=== PATIENT | male | born 1940 | race African-American/Black ===

== ENCOUNTER 2016-09-05 09:44 | Emergency (ER) | payer OTHER ==
[~2016-09-05] VITALS: Ht 175.3 cm; Wt 84.8 kg
[~2016-09-05 09:44] MED LIST: ALBUTEROL0.09 MG/A1 INH; AUGMENTIN 875 M1 TAB PO; BENICAR HCT 12.1 TA1 PO; SIMVASTATIN20 MG PO; TESSALON PERLE100 MG PO; TYLENOL #31 TAB PO
--- NOTE | 2016-09-05 10:54 | ED UPPER/LOWER EXTREMITY COMPL ---
History of Present Illness General Chief Complaint: Lower Extremity Problems Stated Complaint: LFT LEG PAIN Source: patient Exam Limitations: no limitations Vital Signs & Intake/Output Vital Signs & Intake/Output Vital Signs Date Time Temp Pulse Resp B/P Pulse O2 O2 Flow FiO2 Ox Delivery Rate 09/05 1336 97.4 88 17 139/76 97 Room Air 09/05 0954 96.6 80 16 143/83 97 Room Air Allergies Coded Allergies: NO KNOWN ALLERGIES (03/18/16) Reconcile Medications Hydrochlorothiazide/Olmesart (Benicar Hct 12.5 MG-40 MG) 1 TAB TAB 1 TAB PO DAILY BP (Reported) Methylprednisolone. (Medrol) 4 MG TAB.DS.PK 1 DP PO AD back pain 6 on day 1 then reduce by one tablet daily until gone Simvastatin (Zocor) 20 MG TAB 1 TAB PO QPM CHOLESTEROL (Reported) Tramadol HCl 50 MG TABLET 1 TAB PO BIDP PRN pain Triage Note: 76 Y/O MALE C/O PAIN TO L LEG (L THIGH AND AROUND L KNEE) FOR MONTHS; STATES LEG USED TO "GIVE OUT" ON HIM BUT NEVER CAUSED PAIN UNTIL RECENTLY. DENIES RECENT FALLS OR TRAUMA. DENIES NOTING SWELLING, REDNESS OR BRUISING. HAS BEEN TAKING TYLENOL WITH NO RELIEF NOTED. SLIGHT LIMP NOTED. Triage Nurses Notes Reviewed? yes HPI: This patient is a 76-year-old male with past medical history including hypertension and prior DVT who presented to the emergency department today for evaluation of left leg pain. The patient reported that the pain began approximately one month ago. He reported that his symptoms began with feeling as though his leg was giving out underneath him. He denied ever falling and hitting his head. However, he reported that the pain has become constant and radiates from the back of his left thigh down to the top of his left foot. The pain gets up to 9 out of 10 and is throbbing. The patient has tried taking Tylenol for his symptoms without any relief. The pain seems to feel better when he is laying down and gets worse when he is ambulating. The patient denied any back pain, bowel or bladder incontinence, saddle paresthesia, numbness or tingling in his extremities, chest pain, difficulty breathing, abdominal pain, hemoptysis, leg swelling, or any other associated symptoms. (SHELLEY CORDOVA,CHINA) Past History Travel History Traveled to [place] past 21 day No Medical History Any Pertinent Medical History? see below for history Neurological: NONE EENT: NONE Cardiovascular: hypertension, hyperlipidemia Respiratory: NONE Gastrointestinal: NONE Hepatic: NONE Renal: NONE Musculoskeletal: disk herniation Psychiatric: NONE Endocrine: NONE Blood Disorders: DVT Cancer(s): NONE DIRECTOR TELEVISION/Reproductive: NONE Surgical History Surgical History: N Psychosocial History What is your primary language Georgian Tobacco Use: Never used Family History Hx Contributory? No (CHINA ROSA PA-C) Review of Systems Review of Systems Constitutional: Reports: no symptoms. EENTM: Reports: no symptoms. Respiratory: Reports: no symptoms. Cardiovascular: Reports: no symptoms. Gastrointestinal/Abdominal: Reports: no symptoms. Genitourinary: Reports: no symptoms. Musculoskeletal: Reports: see HPI. Skin: Reports: no symptoms. Neurological/Psychological: Reports: no symptoms. Hematologic/Endocrine: Reports: see HPI. All Other Systems: Reviewed and Negative (CHINA ROSA PA-C) Physical Exam Physical Exam General Appearance: well developed/nourished, no apparent distress, alert, awake Comments: Well-developed well-nourished person in no acute distress HEENT: Normal EENT exam, head normocephalic, moist mucous membranes Neck: Supple, no lymphadenopathy Back: Antalgic gait. Normal dissection. No midline tenderness Cardiovascular: Regular rate and rhythm with no murmurs Respiratory: Chest nontender. No respiratory distress. Breath sounds clear to auscultation bilaterally Left lower extremity: no effusions or overlying erythema or ecchymosis to the joint spaces. Full range of motion at the hip, knee, and ankle. Positive Homans sign. Positive tenderness to palpation over the calf. No bony or muscular deformities noted. Dorsalis pedis and posterior tibialis pulses 2+ and strong. Capillary refill less than 2 seconds Neuro: Alert oriented x3, cranial nerves II through XII grossly intact. Skin: No appreciable rash on exposed skin, skin is warm and dry. Psych: Mood and affect is normal (CHINA ROSA PA-C) Progress Differential Diagnosis: arterial insufficiency, cellulitis, CHF, compartment syndrome, contusion, dislocation, DVT, fracture, gout, septic arthritis, sprain, tendon injury Plan of Care: Orders Procedure Date/time Status PARTIAL THROMBOPLASTIN TIME 09/05 1037 Complete PROTHROMBIN TIME 09/05 1037 Complete COMPREHENSIVE METABOLIC PANEL 09/05 1037 Complete CBC WITHOUT DIFFERENTIAL 09/05 1037 Complete Laboratory Tests 09/05/16 1121: Anion Gap 8, Estimated GFR > 60, BUN/Creatinine Ratio 18.8, Glucose 90, Calcium 9.1, Total Bilirubin 0.7, AST 25, ALT 24, Alkaline Phosphatase 42, Total Protein 6.7, Albumin 3.9, Globulin 2.8, Albumin/Globulin Ratio 1.4, PT 13.2 H, INR 1.26 H, APTT 33, CBC w Diff NO MAN DIFF REQ, RBC 4.70, MCV 89.5, MCH 30.4, RDW 14.1, MPV 7.8, Gran % 59.5, Lymphocytes % 27.8, Monocytes % 8.2, Eosinophils % 4.3, Basophils % 0.2, Absolute Granulocytes 3.9, Absolute Lymphocytes 1.8, Absolute Monocytes 0.5, Absolute Eosinophils 0.3, Absolute Basophils 0, PUBS MCHC 33.9 Diagnostic Imaging: Viewed by Me: CT Scan, Ultrasound. Discussed w/RAD: CT Scan, Ultrasound. Radiology Impression: PATIENT: CHENTE JOHNSON PRESENT AGE: 76 PATIENT ACCOUNT NO: [id number] : 39 LOCATION: [facility] ORDERING PHYSICIAN: CHINA ROSA PA-C SERVICE DATE: 09/05/16 EXAM TYPE: US - US-UNILATERAL VENOUS DOPPLER EXAMINATION: US TRIPLEX LOWER EXTREMITY, LEFT CLINICAL INFORMATION: Left leg pain. COMPARISON: None. TECHNIQUE: Color- flow triplex imaging with spectral analysis and compression Doppler were performed on the left lower extremity. FINDINGS: The left common femoral vein is compressible and exhibits a normal phasic waveform; this suggests that the iliac veins are widely patent above. Within the proximal thigh, the visualized profunda femoris vein is patent and the examined greater saphenous vein and saphenofemoral junction are normal. Superficial femoral vein is patent in the proximal, mid and distal thigh. Popliteal vein appears normal to the level of the trifurcation, and the visualized deep calf veins are patent. No evidence of Barrett's cyst. IMPRESSION: No evidence of deep vein thrombosis in the left lower extremity. DICTATED BY: LORENA ROSS MD DATE/TIME DICTATED:09/05/161133 SAFE EXPERT:LUIS DATE/TIME TRANSCRIBED:09/05/161133 CONFIDENTIAL, DO NOT COPY WITHOUT APPROPRIATE AUTHORIZATION. <Electronically signed in Other Vendor System> SIGNED BY: LORENA ROSS MD 09/05/16 1895, PATIENT: CHENTE JOHNSON PRESENT AGE: 76 PATIENT ACCOUNT NO: [id number] : 39 LOCATION: [facility] ORDERING PHYSICIAN: CHINA ROSA PA-C SERVICE DATE: 09/05/16-1156 EXAM TYPE: CAT - CT LUMB SPINE WO IV CONTRAST EXAMINATION: CT LUMBAR SPINE WITHOUT CONTRAST CLINICAL INFORMATION: Pain to rule out disc herniation. COMPARISON: None available. TECHNIQUE: Helical non-contrast CT images were obtained through the lumbar spine and 1.25 and 2.5 mm axial reconstructions were reviewed along with sagittal and coronal MPRs. FINDINGS: 5 nonrib-bearing lumbar-type vertebral bodies. There are no acute fractures and there are no acute subluxations. Left hemilaminectomy changes at L4. There is no spondylolisthesis. Vertebral body heights are overall maintained. Moderate disc volume loss and vacuum phenomenon at all lumbar levels. No osteolytic and no osteoblastic lesions. Partially imaged bilateral renal cysts. Punctate nonobstructing calculus within the upper pole of the left kidney. Aortoiliac atherosclerotic calcification. L1-L2: Diffuse annular disc bulge with a superimposed posterior right central disc osteophyte protrusion that indents the ventral thecal sac and along with ligamentum flavum thickening likely results in moderate central canal stenosis. Mild foraminal narrowing bilaterally is suspected. L2-L3: There is a diffuse annular disc bulge that is in part a disc osteophyte complex. There is a small amount of vacuum phenomenon within the ventral portion of the disc. Mild bilateral facet arthropathy. Likely mild central canal stenosis. Suspect moderate bilateral foraminal stenosis. L3-L4: There is a diffuse disc osteophyte complex and there is a small amount of vacuum phenomenon within the ventral portion of the disc. Left hemilaminectomy changes at L4. Mild bilateral facet arthropathy. Mild to moderate central canal stenosis is suspected. Fairly severe right-sided foraminal stenosis with possible mass effect on the exiting right L3 nerve root. L4-L5: There is a central disc protrusion exhibiting vacuum phenomenon that likely results in moderate to severe central canal stenosis. There is moderate bilateral facet arthropathy. Fairly severe bilateral foraminal stenosis with probable mass effect on the exiting L4 nerve roots bilaterally. L5-S1: There is a central disc osteophyte protrusion that indents the ventral thecal sac, likely resulting in mild central canal stenosis. Bilateral facet arthropathy. Severe bilateral foraminal stenosis with mass effect on the exiting L5 nerve roots bilaterally. IMPRESSION: - Fairly advanced multilevel degenerative disc disease throughout the lumbar spine with a combination of disc bulges and disc herniations at all lumbar levels. Of note, a disc protrusion exhibiting vacuum phenomenon at L4-L5 likely results in moderate to severe central canal stenosis and a disc osteophyte protrusion at L1-L2 results in at least moderate central canal stenosis. Severe right L3-L4, severe bilateral L4-L5, and severe bilateral L5-S1 foraminal stenosis with suspected mass effect on the exiting nerve roots at these levels. There is multilevel subarticular zone stenosis with mass effect on the traversing nerve roots at multiple lumbar levels suspected. Several of the disc herniations exhibit vacuum phenomenon. - Left hemilaminectomy changes at L4. DICTATED BY: ANAT YARBROUGH MD DATE/TIME DICTATED:09/05/161321 SAFE EXPERT:LUIS DATE/TIME TRANSCRIBED:09/05/161321 CONFIDENTIAL, DO NOT COPY WITHOUT APPROPRIATE AUTHORIZATION. <Electronically signed in Other Vendor System> SIGNED BY: ANAT YARBROUGH MD 09/05/16 1337, PATIENT: CHENTE JOHNSON PRESENT AGE: 76 PATIENT ACCOUNT NO: [id number] : 39 LOCATION: [facility] ORDERING PHYSICIAN: CHINA ROSA PA-C SERVICE DATE: 09/05/16-5952 EXAM TYPE: CAT - CT LOWER EXT WO IV CONTRAST EXAMINATION: CT LOWER EXTREMITY WITHOUT CONTRAST, LEFT CLINICAL INFORMATION: Pain to rule out fracture. COMPARISON: None available. TECHNIQUE: A multidetector CT acquisition of the left lower extremity is obtained without IV contrast. Multiplanar reformats are acquired and utilized for image interpretation. FINDINGS: No fractures. The bony articulations are maintained. The left femoral acetabular joint appears unremarkable. There are a few chronic well-corticated ossific densities along the anterior margin of the roof of acetabulum and adjacent to the greater trochanter of the proximal left femur that appear chronic. There are small hypertrophic spurs along the anterior aspect of the patella the projects superiorly and inferiorly. There is no knee joint effusion. There are no significant soft tissue findings. IMPRESSION: No acute osseous abnormalities involving the left lower extremity. DICTATED BY: ANAT YARBROUGH MD DATE/TIME DICTATED:09/05/161333 SAFE EXPERT:LUIS DATE/TIME TRANSCRIBED:09/05/161333 CONFIDENTIAL, DO NOT COPY WITHOUT APPROPRIATE AUTHORIZATION. <Electronically signed in Other Vendor System> SIGNED BY: ANAT YARBROUGH MD 09/05/16 6720 Comments: 09/05/2016 11:58:08 AM: As above the patient's bedside for reevaluation. He is currently resting comfortably on the stretcher. Nontoxic in no acute distress. He reported that the tramadol did help his pain, "a little bit." Updated him on the results of his laboratory studies and imaging. No signs of DVT. We will obtain a CT scan of the lumbar spine and lower extremity to rule out any bulging disks, or other spinal pathology as a cause for this patient's shooting pain down his leg. (CHINA ROSA PA-C) Departure Departure Disposition: HOME OR SELF CARE Condition: Stable Clinical Impression Primary Impression: Disc herniation Qualifiers: Spinal region: lumbar Qualified Code: M51.26 - Other intervertebral disc displacement, lumbar region Secondary Impressions: Spinal stenosis Qualifiers: Spinal region: unspecified Qualified Code: M48.00 - Spinal stenosis , site unspecified Referrals: YOLETTE DARNELL,GISELLA MAGANA MD,SYLVESTER (PCP/Family) Additional Instructions: Medrol Dosepak as prescribed. Take tramadol as prescribed for pain. You may take [id number] ibuprofen for inflammation. Gentle stretching. Avoid any strenuous activity or heavy lifting. Please call the neurosurgeon whose information has been provided to you in this packet for further evaluation and management. Return to the emergency department for any worsening symptoms or concerns. Departure Forms: Customer Survey General Discharge Information Prescriptions: Current Visit Scripts Methylprednisolone. (Medrol) 1 DP PO AD #1 DP 6 on day 1 then reduce by one tablet daily until gone Tramadol HCl 1 TAB PO BIDP PRN pain #8 TAB (CHINA ROSA PA-C) PA/[employer] Co-Sign Statement Statement: ED Attending supervision documentation- [X] I saw and evaluated the patient. I have also reviewed all the pertinent lab results and diagnostic results. I agree with the findings and the plan of care as documented in the PA's/[employer]'s documentation. [X] I have reviewed the ED Record and agree with the PA's/[employer]'s documentation. [] Additions or exceptions (if any) to the PAs/[employer]'s note and plan are summarized below: [] (ZA DARNELL,MONICA)
[2016-09-05 11:30] LABS: ABSOLUTE BASOPHIL COUNT 0 /CUMM (0.0-0.2); ABSOLUTE EOSINOPHIL COUNT 0.3 /CUMM (0.0-0.7); ABSOLUTE LYMPH COUNT 1.8 /CUMM (1.2-3.4); MEAN CORPUSCULAR HGB 30.4 PG (27.0-31.0)
[2016-09-05 11:34] LABS: ABSOLUTE GRANULOCYTE CT 3.9 /CUMM (1.4-6.5); ABSOLUTE MONOCYTE COUNT 0.5 /CUMM (0.10-0.60); BASOPHIL % 0.2 % (0.0-2.0); EOSINOPHIL % 4.3 % (0-5); GRANULOCYTE % 59.5 % (42.2-75.2); MEAN CORPUSCULAR HGB CONC 33.9 G/DL (33.0-37.0); MEAN CORPUSCULAR VOLUME 89.5 FL (80.0-94.0); MEAN PLATELET VOLUME 7.8 FL (7.4-10.4); PLATELET COUNT 196 /CUMM (130-400); RBC DISTRIBUTION WIDTH 14.1 % (11.5-14.5); WHITE BLOOD CELL COUNT 6.5 /CUMM (4.8-10.8)
[2016-09-05 11:39] LABS: PT 13.2 SEC (9.4-12.5); PTT 33 SEC (25-37)
--- NOTE | 2016-09-05 11:39 | ULTRASOUND REPORT ---
EXAMINATION: US TRIPLEX LOWER EXTREMITY, LEFT CLINICAL INFORMATION: Left leg pain. COMPARISON: None. TECHNIQUE: Color-flow triplex imaging with spectral analysis and compression Doppler were performed on the left lower extremity. FINDINGS: The left common femoral vein is compressible and exhibits a normal phasic waveform; this suggests that the iliac veins are widely patent above. Within the proximal thigh, the visualized profunda femoris vein is patent and the examined greater saphenous vein and saphenofemoral junction are normal. Superficial femoral vein is patent in the proximal, mid and distal thigh. Popliteal vein appears normal to the level of the trifurcation, and the visualized deep calf veins are patent. No evidence of Barrett's cyst. IMPRESSION: No evidence of deep vein thrombosis in the left lower extremity.
[2016-09-05 13:36] VITALS: BP 139/76
--- NOTE | 2016-09-05 13:37 | CT SCAN REPORT ---
EXAMINATION: CT LUMBAR SPINE WITHOUT CONTRAST CLINICAL INFORMATION: Pain to rule out disc herniation. COMPARISON: None available. TECHNIQUE: Helical non-contrast CT images were obtained through the lumbar spine and 1.25 and 2.5 mm axial reconstructions were reviewed along with sagittal and coronal MPRs. FINDINGS: 5 nonrib-bearing lumbar-type vertebral bodies. There are no acute fractures and there are no acute subluxations. Left hemilaminectomy changes at L4. There is no spondylolisthesis. Vertebral body heights are overall maintained. Moderate disc volume loss and vacuum phenomenon at all lumbar levels. No osteolytic and no osteoblastic lesions. Partially imaged bilateral renal cysts. Punctate nonobstructing calculus within the upper pole of the left kidney. Aortoiliac atherosclerotic calcification. L1-L2: Diffuse annular disc bulge with a superimposed posterior right central disc osteophyte protrusion that indents the ventral thecal sac and along with ligamentum flavum thickening likely results in moderate central canal stenosis. Mild foraminal narrowing bilaterally is suspected. L2-L3: There is a diffuse annular disc bulge that is in part a disc osteophyte complex. There is a small amount of vacuum phenomenon within the ventral portion of the disc. Mild bilateral facet arthropathy. Likely mild central canal stenosis. Suspect moderate bilateral foraminal stenosis. L3-L4: There is a diffuse disc osteophyte complex and there is a small amount of vacuum phenomenon within the ventral portion of the disc. Left hemilaminectomy changes at L4. Mild bilateral facet arthropathy. Mild to moderate central canal stenosis is suspected. Fairly severe right-sided foraminal stenosis with possible mass effect on the exiting right L3 nerve root. L4-L5: There is a central disc protrusion exhibiting vacuum phenomenon that likely results in moderate to severe central canal stenosis. There is moderate bilateral facet arthropathy. Fairly severe bilateral foraminal stenosis with probable mass effect on the exiting L4 nerve roots bilaterally. L5-S1: There is a central disc osteophyte protrusion that indents the ventral thecal sac, likely resulting in mild central canal stenosis. Bilateral facet arthropathy. Severe bilateral foraminal stenosis with mass effect on the exiting L5 nerve roots bilaterally. IMPRESSION: - Fairly advanced multilevel degenerative disc disease throughout the lumbar spine with a combination of disc bulges and disc herniations at all lumbar levels. Of note, a disc protrusion exhibiting vacuum phenomenon at L4-L5 likely results in moderate to severe central canal stenosis and a disc osteophyte protrusion at L1-L2 results in at least moderate central canal stenosis. Severe right L3-L4, severe bilateral L4-L5, and severe bilateral L5-S1 foraminal stenosis with suspected mass effect on the exiting nerve roots at these levels. There is multilevel subarticular zone stenosis with mass effect on the traversing nerve roots at multiple lumbar levels suspected. Several of the disc herniations exhibit vacuum phenomenon. - Left hemilaminectomy changes at L4.
--- NOTE | 2016-09-05 13:43 | CT SCAN REPORT ---
EXAMINATION: CT LOWER EXTREMITY WITHOUT CONTRAST, LEFT CLINICAL INFORMATION: Pain to rule out fracture. COMPARISON: None available. TECHNIQUE: A multidetector CT acquisition of the left lower extremity is obtained without IV contrast. Multiplanar reformats are acquired and utilized for image interpretation. FINDINGS: No fractures. The bony articulations are maintained. The left femoral acetabular joint appears unremarkable. There are a few chronic well-corticated ossific densities along the anterior margin of the roof of acetabulum and adjacent to the greater trochanter of the proximal left femur that appear chronic. There are small hypertrophic spurs along the anterior aspect of the patella the projects superiorly and inferiorly. There is no knee joint effusion. There are no significant soft tissue findings. IMPRESSION: No acute osseous abnormalities involving the left lower extremity.
[2016-09-05] MEDS ORDERED: TRAMADOL HCL50 M1 PO (14:11)
[2016-09-05] MEDS ORDERED: MEDROL4 M2 PO (14:11)
== END 2016-09-05 14:14 ==
LOC: ERH 09:44
PROVIDERS: Physician Assistant
DX: M51.26 Other intervertebral disc displacement, lumbar region (principal); M48.07 Spinal stenosis, lumbosacral region; M48.06 Spinal stenosis, lumbar region

== ENCOUNTER 2016-10-10 02:46 | Emergency (ER) | payer OTHER ==
[~2016-10-10] VITALS: Ht 175.3 cm; Wt 83.9 kg
[~2016-10-10 02:46] MED LIST changes: +MEDROL4 M2 PO; +TRAMADOL HCL50 M1 PO
[2016-10-10 04:02] LABS: ABSOLUTE BASOPHIL COUNT 0.1 /CUMM (0.0-0.2); ABSOLUTE EOSINOPHIL COUNT 0.2 /CUMM (0.0-0.7); ABSOLUTE GRANULOCYTE CT 2.6 /CUMM (1.4-6.5); ABSOLUTE MONOCYTE COUNT 0.6 /CUMM (0.10-0.60); GRANULOCYTE % 47.6 % (42.2-75.2); HEMATOCRIT 41.2 % (42-52); MEAN CORPUSCULAR HGB 30.2 PG (27.0-31.0); MEAN CORPUSCULAR HGB CONC 33.3 G/DL (33.0-37.0); MEAN CORPUSCULAR VOLUME 90.8 FL (80.0-94.0); MEAN PLATELET VOLUME 7.3 FL (7.4-10.4); PLATELET COUNT 210 /CUMM (130-400); RBC DISTRIBUTION WIDTH 14.8 % (11.5-14.5); RED BLOOD CELL CT 4.54 /CUMM (4.70-6.10); WHITE BLOOD CELL COUNT 5.5 /CUMM (4.8-10.8)
--- NOTE | 2016-10-10 04:13 | RADIOLOGY REPORT ---
EXAMINATION: XR PORTABLE CHEST CLINICAL INFORMATION: Chest pain COMPARISON: Chest x-ray 01/18/2012 TECHNIQUE: Portable AP portable view of the chest was obtained. 3:54 AM FINDINGS: No significant abnormality is noted involving the heart, lungs, mediastinum, bony thorax or soft tissues. IMPRESSION: No acute abnormality of the chest.
[2016-10-10] MEDS ORDERED: IBUPROFEN600 M1 PO (04:55)
--- NOTE | 2016-10-10 04:55 | ED CARDIAC/CP/PALPITATIONS ---
History of Present Illness General Chief Complaint: Chest Pain Stated Complaint: PT C/O NUMBNESS TO LT FINGERS.....CP Source: patient, old records Exam Limitations: no limitations Vital Signs & Intake/Output Vital Signs & Intake/Output Vital Signs Date Time Temp Pulse Resp B/P Pulse O2 O2 Flow FiO2 Ox Delivery Rate 10/10 0300 96.2 75 18 131/76 97 Room Air Allergies Coded Allergies: NO KNOWN ALLERGIES (03/18/16) Reconcile Medications Hydrochlorothiazide/Olmesart (Benicar Hct 12.5 MG-40 MG) 1 TAB TAB 1 TAB PO DAILY BP (Reported) Methylprednisolone. (Medrol) 4 MG TAB.DS.PK 1 DP PO AD back pain 6 on day 1 then reduce by one tablet daily until gone Simvastatin (Zocor) 20 MG TAB 1 TAB PO QPM CHOLESTEROL (Reported) Tramadol HCl 50 MG TABLET 1 TAB PO BIDP PRN pain Triage Note: PT STATES HE WOKE UP WITH A PAIN IN HIS CHEST AND NUMBNESS IN FINGERS. DENIES SOB AND DENIES CHEST PAIN AT THIS TIME. Triage Nurses Notes Reviewed? yes Onset: Just prior to arrival Duration: minute(s):, constant, gone now Timing: recent history Quality/Severity: moderate, sharp Location: central Radiation: no radiation Activities at Onset: sleep Prior Chest Pain/Card Workup: no prior cardiac workup Modifying Factors: Improves With: rest. Nitro Today/Relief: no nitro taken today Aspirin Today: no aspirin today HPI: Prior to admission patient awoke with sharp moderate chest pain nonradiating lasting seconds resolving spontaneously. He also complains of left hand pain and numbness several days prior to admission. He denies fever chills nausea vomiting diarrhea abdominal pain shortness of breath headache dysuria rash bleeding. Past History Travel History Traveled to [place] past 21 day No Medical History Any Pertinent Medical History? see below for history Neurological: NONE EENT: NONE Cardiovascular: hypertension, hyperlipidemia Respiratory: NONE Gastrointestinal: NONE Hepatic: NONE Renal: NONE Musculoskeletal: disk herniation Psychiatric: NONE Endocrine: NONE Blood Disorders: DVT Cancer(s): NONE DIRECTOR SYSTEMS/Reproductive: NONE Surgical History Surgical History: N Psychosocial History What is your primary language Nigerian Tobacco Use: Never used ETOH Use: denies use Illicit Drug Use: denies illicit drug use Family History Hx Contributory? No Review of Systems Review of Systems Constitutional: Reports: no symptoms. EENTM: Reports: no symptoms. Respiratory: Reports: no symptoms. Cardiovascular: Reports: see HPI, chest pain. GI: Reports: no symptoms. Genitourinary: Reports: no symptoms. Musculoskeletal: Reports: see HPI, joint pain. Skin: Reports: no symptoms. Neurological/Psychological: Reports: see HPI, numbness. Hematologic/Endocrine: Reports: no symptoms. Immunologic/Allergic: Reports: no symptoms. All Other Systems: Reviewed and Negative Physical Exam Physical Exam General Appearance: well developed/nourished, alert, awake, anxious, mild distress Head: atraumatic, normal appearance Eyes: Bilateral: normal appearance, PERRL, EOMI. Ears, Nose, Throat: normal pharynx, normal ENT inspection Neck: normal inspection, supple, full range of motion, no midline tenderness Respiratory: normal breath sounds, chest non-tender, no respiratory distress, quiet respiration, lungs clear Cardiovascular: regular rate/rhythm, normal peripheral pulses, norml femoral pulses equa Peripheral Pulses: 4+ carotid (R), 4+ carotid (L) Gastrointestinal: normal bowel sounds, soft, non-tender, no organomegaly Back: normal inspection, normal range of motion Extremities: normal inspection, normal capillary refill, normal range of motion, no edema, + tinels sign left Neurologic/Psych: no motor/sensory deficits, awake, alert, oriented x 3, normal gait, normal mood/affect Reflexes: 2+: bicep (R), bicep (L). Skin: intact, normal color Lymphatic: no anterior cervical bob Core Measures ACS in differential dx? Yes Severe Sepsis Present: No Septic Shock Present: No Progress Differential Diagnosis: AMI, CHF/pulm edema, hyperkalemia, hypovolemia, musculoskeletal pain, pneumonia Plan of Care: Orders Procedure Date/time Status TROPONIN LEVEL 10/10 0329 Complete COMPREHENSIVE METABOLIC PANEL 10/10 0329 Complete CBC WITHOUT DIFFERENTIAL 10/10 032 Complete EKG 10/10 0249 Active Laboratory Tests 10/10/16 0354: Anion Gap 8, Estimated GFR > 60, BUN/Creatinine Ratio 21.3, Glucose 102 H, Calcium 9.1, Total Bilirubin 0.8, AST 28, ALT 36, Alkaline Phosphatase 46, Troponin I < 0.01, Total Protein 6.6, Albumin 3.8, Globulin 2.8, Albumin/ Globulin Ratio 1.4, CBC w Diff NO MAN DIFF REQ, RBC 4.54 L, MCV 90.8, MCH 30.2, RDW 14.8 H, MPV 7.3 L, Gran % 47.6, Lymphocytes % 36.6, Monocytes % 10.8 H, Eosinophils % 4.0, Basophils % 1.0, Absolute Granulocytes 2.6, Absolute Lymphocytes 2.0, Absolute Monocytes 0.6, Absolute Eosinophils 0.2, Absolute Basophils 0.1, PUBS MCHC 33.3 Diagnostic Imaging: Viewed by Me: Radiology Read. Discussed w/RAD: Radiology Read. CXR Impression: no acute abnormality Initial ED EKG: normal axis, normal intervals, normal p-waves, normal QRS complex, normal sinus rhythm, no ST T wave changes Rhythm Strip: normal sinus rhythm Departure Departure Time of Disposition: 453 Disposition: HOME OR SELF CARE Condition: Stable Clinical Impression Primary Impression: Chest pain syndrome Secondary Impressions: Carpal tunnel syndrome on left Referrals: EDIL DARNELL,BJ Salazar Call for orthopedic follow up SYLVESTER MAGANA MD (PCP/Family) Departure Forms: Customer Survey General Discharge Information Prescriptions: Current Visit Scripts Ibuprofen 1 TAB PO Q6PRN PRN pain #50 TAB with food Critical Care Note Critical Care Note Critical Care Time: non-applicable
[2016-10-10 05:15] VITALS: BP 117/65
== END 2016-10-10 05:27 ==
LOC: ERH 02:46
PROVIDERS: Emergency Medicine
DX: R07.1 Chest pain on breathing (principal); G56.02 Carpal tunnel syndrome, left upper limb
CPT/HCPCS: 93005; 93010; 96374; J1885

== ENCOUNTER 2017-08-25 08:17 | Emergency (ER) | payer OTHER ==
[~2017-08-25] VITALS: Ht 175.3 cm; Wt 83.9 kg
[~2017-08-25 08:17] MED LIST changes: +AMOXICILLIN875 M1 PO; -BENICAR HCT 12.1 TA1 PO; +BENICAR HCT 401 EACH PO; +IBUPROFEN600 M1 PO; +PREDNISONE20 M1 PO; +PROAIR HFA8.5 GM INH; -SIMVASTATIN20 MG PO; +ZOCOR20 M1 PO
--- NOTE | 2017-08-25 10:36 | ED INFLUENZA/URI COMPLAINT ---
History of Present Illness General Chief Complaint: Upper Respiratory Sx/Fever Stated Complaint: COUGH X 3WEEKS Source: patient, family Exam Limitations: no limitations Vital Signs & Intake/Output Vital Signs & Intake/Output Vital Signs Date Time Temp Pulse Resp B/P B/P Pulse O2 O2 Flow FiO2 Mean Ox Delivery Rate 08/25 1221 98.1 86 22 156/88 96 Room Air 08/25 1143 Room Air 08/25 1120 98 08/25 0824 96.0 77 18 146/79 97 Room Air Allergies Coded Allergies: No Known Allergies (06/26/17) Reconcile Medications Albuterol Sulfate (Proair Hfa) 90 MCG HFA.AER.AD 2 PUF INH Q4-6 PRN PRN Asthma Aspirin (Aspirin*) 81 MG TAB.CHEW 1 TAB PO DAILY HEART HEALTH (Reported) Benzonatate (Tessalon Perle) 100 MG CAPSULE 1 CAP PO TID Cough Olmesartan/Hydrochlorothiazide (Benicar Hct 40-12.5 MG Tablet) 40 MG-12.5 MG TABLET 1 TAB PO DAILY HEART (Reported) Prednisone 50 MG TABLET 1 TAB PO DAILY Asthma Simvastatin (Zocor*) 20 MG TABLET 1 TAB PO QPM CHOLESTEROL (Reported) Triage Note: PT TO ER C/C 3 WEEK HX OF PROD. COUGH WITH WHITE SPUTUM. DENIES PAIN. DENIES SOB. DENIES FEVERS. WAS SEEN IN PAST FOR SAME, GIVEN ALBUTEROL INH WHICH PATIENT STATES HELPED A LITTLE BIT. Triage Nurses Notes Reviewed? yes HPI: 77 yo M PMH HTN, HLD, Asthma, DVT presenting with cough. Cough for the last 2-3 weeks, daily, several times per hours, patient feels like phlegm is stuck in throat, denies associated chest pain, palpitations, SOB. Patient has Hx of Asthma, not on maintenance inhalers, prescribed albuterol by PMD Dr. Wilhelm 4-5 days ago with some improvement in cough, has been using MDI q3-4 hrs. Denies rash, fevers, chills, abdominal Sx, urinary Sx, headache, neck pain or focal neurologic Sx. Patient has chart Hx of DVT, patient does not remember having clot or taking AC, denies LE swelling or pain, recent immobility or hospitalization. (Estella DARNELL,Ralph) Past History Travel History Traveled to [place] past 21 day No Medical History Any Pertinent Medical History? 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 No (Ralph Soria MD) Review of Systems Review of Systems Constitutional: Reports: no symptoms. EENTM: Reports: no symptoms. Respiratory: Reports: see HPI, cough. Cardiovascular: Reports: no symptoms. GI: Reports: no symptoms. Genitourinary: Reports: no symptoms. Musculoskeletal: Reports: no symptoms. Skin: Reports: no symptoms. Neurological/Psychological: Reports: no symptoms. Hematologic/Endocrine: Reports: no symptoms. Immunologic/Allergic: Reports: no symptoms. All Other Systems: Reviewed and Negative (Ralph Soria MD) Physical Exam Physical Exam General Appearance: well developed/nourished, no apparent distress, alert, awake Head: atraumatic Ears, Nose, Throat: normal ENT inspection, moist mucous membrane Neck: normal inspection, full range of motion Respiratory: no respiratory distress Cardiovascular: regular rate/rhythm, normal peripheral pulses Gastrointestinal: normal bowel sounds, soft, non-tender Back: normal inspection Extremities: normal inspection Comments: Pulmonary: Decreased breath sounds throuhout with mild intermittent expiratory wheezes Core Measures Sepsis Present: No Sepsis Focused Exam Completed? No (Ralph Soria MD) Progress Differential Diagnosis: influenza, meningitis, neutropenia, otitis, pneumonia, pharyngitis, sinusitis Plan of Care: Orders Procedure Date/time Status AEROSOL (GEN) 08/25 1114 Complete Physician MDM: 77 yo M PMH HTN, HLD, Asthma, DVT presenting with cough. VSS, normal HR and room air sat, well appearing withotu respiratory distress, pulmonary exam as above. DDx: Asthma exacerbation, Bronchitis, PNA, low concern for ACS, PE. Given duoneb x1 and prednisone with improvement in cough and subjective respiratory status per patient, improved pulmonary exam (improved aeration). On re-examination patient resting comfortably, normal WOB, requesting discharge. D/Carlos with prednisone Rx, return precautions, plan for close f/u with PMD. Initial ED EKG: normal axis (Ralph Soria MD) Departure Departure Disposition: HOME OR SELF CARE Condition: Stable Clinical Impression Primary Impression: Cough Referrals: Michel Wilhelm MD (PCP/Family) Additional Instructions: Use albuterol inhaler as needed every 3-4 hours for cough. Take prednisone for the next 4 days. Follow up with Dr. Wilhelm in the next 2-3 days for further evaluation. Return to the ED for any new, worsening, or concerning symptoms. Departure Forms: Customer Survey General Discharge Information Prescriptions: Current Visit Scripts Albuterol Sulfate (Proair Hfa) 2 PUF INH Q4-6 PRN PRN Asthma #1 INHAL Ref 1 Prednisone 1 TAB PO DAILY #4 TAB Benzonatate (Tessalon Perle) 1 CAP PO TID #30 CAP (Ralph Soria MD) PA/U.S. REPRESENTATIVE Co-Sign Statement Statement: ED Attending supervision documentation- [X] I saw and evaluated the patient. I have also reviewed all the pertinent lab results and diagnostic results. I agree with the findings and the plan of care as documented in the PA's/U.S. REPRESENTATIVE's documentation. [X] I have reviewed the ED Record and agree with the PA's/U.S. REPRESENTATIVE's documentation. [] Additions or exceptions (if any) to the PAs/U.S. REPRESENTATIVE's note and plan are summarized below: [] (Christina DARNELL,Kendal)
[2017-08-25] MEDS ORDERED: ASPIRIN81 M4 PO (11:07)
--- NOTE | 2017-08-25 11:29 | RADIOLOGY REPORT ---
EXAMINATION: XR CHEST CLINICAL INFORMATION: Cough COMPARISON: 06/26/2017 TECHNIQUE: 2 views of the chest were obtained. FINDINGS: No focal consolidation, pulmonary edema, or pleural effusion. Stable cardiomediastinal silhouette. IMPRESSION: No acute cardiopulmonary findings
[2017-08-25] MEDS ORDERED: PROAIR HFA8.5 GM INH (12:13)
[2017-08-25] MEDS ORDERED: PREDNISONE50 M1 PO (12:13)
[2017-08-25] MEDS ORDERED: TESSALON PERLE100 M1 PO (12:13)
[2017-08-25 12:21] VITALS: BP 156/88
== END 2017-08-25 12:24 ==
LOC: ERH 08:17
DX: R05 Cough (principal)
CPT/HCPCS: 1263; 71046

== ENCOUNTER 2017-11-03 07:01 | Observation (INO) | payer OTHER ==
[~2017-11-03] VITALS: Ht 175.3 cm; Wt 84.8 kg
[~2017-11-03 07:01] MED LIST changes: +ASPIRIN81 M4 PO; +PREDNISONE50 M1 PO; +TESSALON PERLE100 M1 PO
--- NOTE | 2017-11-03 07:19 | ED NEURO DEFICIT/STROKE ---
History of Present Illness General Chief Complaint: General Adult Stated Complaint: LEFT ARM NUMBNESS Source: patient, family Exam Limitations: no limitations Vital Signs & Intake/Output Vital Signs & Intake/Output Vital Signs Date Time Temp Pulse Resp B/P B/P Pulse O2 O2 Flow FiO2 Mean Ox Delivery Rate 11/03 1000 97.1 66 18 158/94 99 Room Air 11/03 0736 99 Room Air 11/03 0724 97.1 67 18 175/91 98 Room Air 11/03 0709 96.6 69 18 165/83 95 Room Air Allergies Coded Allergies: No Known Allergies (06/26/17) Reconcile Medications Albuterol Sulfate (Proair Hfa) 90 MCG HFA.AER.AD 2 PUF INH Q4-6 PRN PRN Asthma Aspirin (Aspirin*) 81 MG TAB.CHEW 1 TAB PO DAILY HEART HEALTH (Reported) Fluticasone/Vilanterol (Breo Ellipta 200-25 Mcg INH) 200 MCG-25 MCG/DOSE BLST.W.DEV 1 PUFF PO DAILY BREATHING PROBLEMS (Reported) Olmesartan/Hydrochlorothiazide (Benicar Hct 40-12.5 MG Tablet) 40 MG-12.5 MG TABLET 1 TAB PO DAILY HEART (Reported) Pyridoxine HCl (Vitamin B-6) 50 MG TABLET 100 MG PO BID supplement for nerves Rosuvastatin Calcium (Crestor) 10 MG TABLET 1 TAB PO DAILY CHOLESTEROL ( Reported) Triage Note: PT STTES HE HAS HAD NUMBNESS IN HIS LEFT ARM FOR A FEW DAYS. PT REPORTS THAT HIS LEFT HAND HAS BEEN TINGLING. Triage Nurses Notes Reviewed? yes Onset: Abrupt Duration: week(s): (1), worse persistent since (THIS MORNING) Timing: recent history Severity: mild, moderate New Weakness: LUE, LLE HPI: This is a 77-year-old -Sudanese male with history of hypertension and dyslipidemia who presents to the ER for chief complaint of left arm weakness that he noted upon wakening up this morning. He however has had left finger tingling and left hand weakness since last week he presumes before the weekend. It was numb and slightly weak but he assumed it would go away. This morning when he noticed his left arm was tingling he got more concerned. He is right- hand dominant. No recent trauma or fall. Denies any headache blurry vision and ataxia or confusion. No right-sided symptoms. He has a history of hypertension dyslipidemia sees Dr. Wilhelm. Takes a daily baby aspirin. No history of previous strokes or TIAs in the past before. He is a nonsmoker nondrinker. Patient was able to drive himself to the hospital this morning. Past History Travel History Traveled to [place] past 21 day No Medical History Any Pertinent Medical History? 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 No Review of Systems Review of Systems Constitutional: Reports: weakness. Denies: chills, fever. EENTM: Reports: no symptoms. Respiratory: Denies: cough, short of breath, sputum production. Cardiovascular: Denies: chest pain, palpitations. GI: Reports: no symptoms. Genitourinary: Reports: no symptoms. Musculoskeletal: Reports: no symptoms. Skin: Reports: no symptoms. Neurological/Psychological: Reports: numbness, tingling, weakness. Hematologic/Endocrine: Denies: bruising, bleeding. Immunologic/Allergic: Reports: no symptoms. All Other Systems: Reviewed and Negative Physical Exam Physical Exam General Appearance: well developed/nourished, alert, awake, mild distress Head: atraumatic, normal appearance Eyes: Bilateral: normal appearance, PERRL, EOMI. Ears, Nose, Throat: normal ENT inspection, moist mucous membrane, hearing grossly normal Neck: normal inspection, supple, full range of motion Respiratory: normal breath sounds, chest non-tender, no respiratory distress Cardiovascular: regular rate/rhythm, normal peripheral pulses Peripheral Pulses: 2+ radial (R), 2+ ulnar (L) Gastrointestinal: normal bowel sounds, soft, non-tender Extremities: LEFT LEG WEAKNESS, 4/5 STRENGTH Psychiatric: awake, alert, oriented x 3 Cranial Nerves: normal hearing, normal speech, PERRL Coordination/Gait: normal finger to nose Motor/Sensory: weak motor strength LUE, weak motor strength LLE Skin: intact, normal color, warm/dry Core Measures CVA/TIA Diagnosis: Yes NIH Stroke Scale NIH Stroke Scale Response Value Level of Consciousness alert 0 LOC Questions answers both correctly 0 LOC Commands obeys both correctly 0 Best Gaze normal 0 Visual Kessler no visual loss 0 Facial Paresis normal 0 Motor Arm - Left drift 1 Motor Leg - Left drift 1 Motor Leg - Right no drift 0 Limb Ataxia no ataxia 0 Sensory normal 0 Best Language no aphasia 0 Dysarthria normal articulation 0 Extinction and Inattention no neglect 0 Total 2 Date Last Known Well: 10/29/17 Swallow Evaluation Pass Swallow eval date 11/03/17 Swallow eval time 0916 Sepsis Present: No Sepsis Focused Exam Completed? No Progress Differential Diagnosis: intracranial Hem., intracranial mass/tumor, stroke, TIA, PERIPHERAL NEUROPATHY Plan of Care: Orders Procedure Date/time Status LIPID PANEL 11/04 0600 Active BASIC ELECTROLYTES PLUS BUN&CR 11/04 0600 Active Heart Healthy Diet 11/03 L Active Pathway - chart 11/03 1151 Active House Staff 11/03 1151 Active Patient Data 11/03 1151 Active Code Status 11/03 1151 Active Patient Data 11/[address] in observation 11/03 1125 Active ED Holding Orders 11/03 1125 Active Vital Signs 11/03 1125 Active Code Status 11/03 1125 Complete NIH Stroke Scale 11/03 0745 Active Intake & Output 11/03 0735 Active Telemetry/Terrazzo Tile Maker 11/03 0727 Active TROPONIN LEVEL 11/03 0727 Complete PARTIAL THROMBOPLASTIN TIME 11/03 0727 Complete PROTHROMBIN TIME 11/03 0727 Complete COMPREHENSIVE METABOLIC PANEL 11/03 0727 Complete CBC WITHOUT DIFFERENTIAL 11/03 0727 Complete EKG 11/03 0710 Active VTE Mechanical Prophylaxis 11/03 UNK Active Telemetry/Terrazzo Tile Maker 11/03 UNK Active Current Medications Sig/Kain Start time Last Medication Dose Stop Time Status Admin Losartan Potassium 50 MG DAILY 11/04 1000 AC (Cozaar) Atorvastatin Calcium 80 MG 1700 11/03 1700 AC (Lipitor) Aspirin 81 MG DAILY 11/03 1152 AC (Aspirin) Laboratory Tests 11/03/17 0733: Anion Gap 13, Estimated GFR > 60, BUN/Creatinine Ratio 17.5, Glucose 103 H, Calcium 9.2, Total Bilirubin 0.7, AST 27, ALT 38, Alkaline Phosphatase 46, Troponin I 0.02, Total Protein 6.6, Albumin 3.9, Globulin 2.7, Albumin/Globulin Ratio 1.4, PT 13.5 H, INR 1.24 H, APTT 30, CBC w Diff NO MAN DIFF REQ, RBC 4.26 L, MCV 92.1, MCH 30.8, MCHC 33.4, RDW 14.5, MPV 7.8, Gran % 40.8 L, Lymphocytes % 45.7, Monocytes % 9.2, Eosinophils % 3.7, Basophils % 0.6, Absolute Granulocytes 2.4, Absolute Lymphocytes 2.7, Absolute Monocytes 0.5, Absolute Eosinophils 0.2, Absolute Basophils 0 9:55 AM NEURO PAGED 10:10 AM NEURO REPAGED 10:25 AM HOSPITALIST PAGED 10:54 AM D/W DR BHATIA AND DR SERNA. WILL ADMIT OVERNIGHT FOR MRI IN AM. WILL OBTAIN CT HEAD ANGIOGRAM. Diagnostic Imaging: Viewed by Me: Radiology Read, CT Scan, Ultrasound. Discussed w/RAD: Radiology Read, CT Scan, Ultrasound. Radiology Impression: PATIENT: CHENTE JOHNSON PRESENT AGE: 77 PATIENT ACCOUNT NO: [id number] : 39 LOCATION: [facility] ORDERING PHYSICIAN: Kendal Vasquez MD SERVICE DATE: 11/03/17 EXAM TYPE: CAT - CT HEAD WO IV CONTRAST EXAMINATION: CT HEAD WITHOUT CONTRAST CLINICAL INFORMATION: Left-sided weakness. COMPARISON: No relevant prior imaging. TECHNIQUE: Contiguous axial imaging was performed from the skull base to vertex without intravenous administration of contrast. DLP: 689.01 mGy-cm FINDINGS: There is no acute intracranial hemorrhage or abnormal extra-axial collection. No intracranial mass effect or midline shift. Lateral and third ventricles are normal. No hydrocephalus. Palacios-white matter differentiation is preserved and there is no evidence of acute territorial infarct. The calvarium and skull base are intact. Mastoid air cells and middle ear cavities are well-aerated. Visualized paranasal sinuses are well-aerated. IMPRESSION: Unremarkable CT scan of the head. No evidence of acute territorial infarct or hemorrhage. DICTATED BY : Kenney Lynch MD DATE/TIME DICTATED:11/03/17813 [employer]CHOOL COOK: LUIS DATE/TIME TRANSCRIBED:11/03/17813 CONFIDENTIAL, DO NOT COPY WITHOUT APPROPRIATE AUTHORIZATION. <Electronically signed in Other Vendor System> SIGNED BY: Kenney Lynch MD 11/03/17823 Initial ED EKG: NSR Prior EKG: unchanged Rhythm Strip: normal sinus rhythm Departure Departure Time of Disposition: 112 Disposition: STILL A PATIENT Condition: Stable Clinical Impression Primary Impression: CVA (cerebral vascular accident) Secondary Impressions: Hypokalemia Referrals: Michel Wilhelm MD (PCP/Family) Departure Forms: Customer Survey General Discharge Information Prescriptions: Current Visit Scripts Pyridoxine HCl (Vitamin B-6) 100 MG PO BID #30 TAB Observation Note Spoke With: Michel Wilhelm MD Physician Advisor Notified: LAINA DARNELL,BETO Wallace (CASE MANAGEMENT) Place Patient In: Non-ED OBS Care Area Rationale for Observation: My rational for observation is as follows [TELE MONITOR, NEURO CHECKS, F/U CT HEAD/NECK ANGIOGRAM, MRI, NEURO CONSULT DR BHATIA].
[2017-11-03 08:02] LABS: ABSOLUTE BASOPHIL COUNT 0 /CUMM (0.0-0.2); ABSOLUTE EOSINOPHIL COUNT 0.2 /CUMM (0.0-0.7); ABSOLUTE MONOCYTE COUNT 0.5 /CUMM (0.10-0.60); WHITE BLOOD CELL COUNT 5.9 /CUMM (4.8-10.8)
[2017-11-03 08:03] LABS: ABSOLUTE GRANULOCYTE CT 2.4 /CUMM (1.4-6.5); ABSOLUTE LYMPH COUNT 2.7 /CUMM (1.2-3.4); BASOPHIL % 0.6 % (0.0-2.0); EOSINOPHIL % 3.7 % (0-5); GRANULOCYTE % 40.8 % (42.2-75.2); HEMATOCRIT 39.3 % (42-52); MEAN CORPUSCULAR HGB 30.8 PG (27.0-31.0); MEAN CORPUSCULAR HGB CONC 33.4 G/DL (33.0-37.0); MEAN CORPUSCULAR VOLUME 92.1 FL (80.0-94.0); MEAN PLATELET VOLUME 7.8 FL (7.4-10.4); PLATELET COUNT 211 /CUMM (130-400); RBC DISTRIBUTION WIDTH 14.5 % (11.5-14.5); RED BLOOD CELL CT 4.26 /CUMM (4.70-6.10)
--- NOTE | 2017-11-03 08:09 | RADIOLOGY REPORT ---
EXAMINATION: XR PORTABLE CHEST CLINICAL INFORMATION: CVA. COMPARISON: Chest radiograph 08/25/2017. TECHNIQUE: Portable frontal view of the chest was obtained. FINDINGS: The lungs are clear without consolidation, edema, or effusion. There is no pneumothorax. The cardiomediastinal silhouette appears normal. The osseous structures are intact. IMPRESSION: No active disease in the chest.
--- NOTE | 2017-11-03 08:24 | CT SCAN REPORT ---
EXAMINATION: CT HEAD WITHOUT CONTRAST CLINICAL INFORMATION: Left-sided weakness. COMPARISON: No relevant prior imaging. TECHNIQUE: Contiguous axial imaging was performed from the skull base to vertex without intravenous administration of contrast. DLP: 689.01 mGy-cm FINDINGS: There is no acute intracranial hemorrhage or abnormal extra-axial collection. No intracranial mass effect or midline shift. Lateral and third ventricles are normal. No hydrocephalus. Palacios-white matter differentiation is preserved and there is no evidence of acute territorial infarct. The calvarium and skull base are intact. Mastoid air cells and middle ear cavities are well-aerated. Visualized paranasal sinuses are well-aerated. IMPRESSION: Unremarkable CT scan of the head. No evidence of acute territorial infarct or hemorrhage.
[2017-11-03] MEDS ORDERED: BREO ELLIPTA 21 EACH PO (08:43)
[2017-11-03] MEDS ORDERED: CRESTOR10 M1 PO (08:43)
[2017-11-03 08:44] LABS: PT 13.5 SEC (9.4-12.5); PTT 30 SEC (25-37)
--- NOTE | 2017-11-03 11:06 | ULTRASOUND REPORT ---
EXAMINATION: US DUPLEX CAROTID AND VERTEBRAL CLINICAL INFORMATION: Left-sided weakness. COMPARISON: Carotid Doppler study dated 11/23/2013. TECHNIQUE: Real-time ultrasound and Doppler techniques (integrating B-mode 2D vascular images, Doppler spectral analysis and color flow Doppler imaging) were utilized to interrogate the extracranial carotid and vertebral arteries bilaterally. The degree of stenosis determined by criteria similar to NASCET. FINDINGS: Right carotid system: Calcified atherosclerotic plaque is present along the margin of the right common carotid artery and at the carotid bifurcation however with no substantial luminal narrowing identified. Right carotid peak systolic velocities (documented in centimeters per second): Proximal CCA: 107 Distal CCA: 94 Proximal ICA: 82 Mid ICA: 87 Distal ICA: 106 ECA: 95 Vertebral artery: 82, Antegrade flow is demonstrated within the right vertebral artery. Right ICA/CCA ratio: 1.13 Left carotid system morphology: Intimal thickening without calcified plaque is present within the left common carotid artery, no luminal narrowing is observed. Left carotid peak systolic velocities (documented in centimeters per second): Proximal CCA: 104 Distal CCA: 78 Proximal ICA: 87 Mid ICA: 94 Distal ICA 87 Left ECA: 73 Vertebral artery, 47, Antegrade flow is demonstrated within the left vertebral artery. Left ICA/CCA ratio: 1.2 IMPRESSION: No evidence of hemodynamically significant carotid artery stenosis is present throughout either left or right carotid systems.
--- NOTE | 2017-11-03 11:39 | History & Physical ---
See Addendum General Information and HPI MD Statement: I have seen and personally examined CHENTE JOHNSON and documented this H&P. The patient is a 77 year old M who presented with a patient stated chief complaint of [Stroke/TIA]. Source of Information: patient, family, old records Exam Limitations: no limitations History of Present Illness: Patient is a 69-year-old male presented with chief complaints of numbness in the left arm since couple of days. Discussed with the patient in detail and according to him he was having episodes of tingling and numbness in his left side of the chest and the face intermittently since last 1 month. Since last 1 week he started having pain in the neck sometimes and tingling and numbness and pressure in the left side of the hand. In the morning when he woke up he was feeling severe pressure and unable to lift his left arm for about 15 minutes and that is why he came to the [facility] ED for further evaluation and management. He denies for any weakness in the working with the fingers, dropping of any object from the hand, headache, nausea, vomiting, difficulty in the hearing, difficulty swallowing, dysarthria, chest pain, shortness of breath, falls, seizures, incontinence of the stool in the urine. He was also complaining of pain in his neck which was located on the right side of the neck since couple of days and he feels difficulty when he rotate his neck to the right side. He denies for any trauma in the neck. He was also complaining of weakness in his left leg which was chronic in nature. According to him his legs give up since last couple of years secondary to his multiple back surgeries. According to him when he walked for a couple of steps he needs to stop because of the pain in his leg and after he started aspirin daily he is much better nowadays. 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 Denies smoking, alcohol, drug abuse. Family history -mother had diabetes, hypertension, at the age of 70 secondary to stroke. Surgical history -had cataract surgery of the right eye, multiple back surgeries , had a steroid injection in the back in 2017. PCP -Dr. Wilhelm Allergies/Medications Allergies: Coded Allergies: No Known Allergies (06/26/17) Home Med list Albuterol Sulfate (Proair Hfa) 90 MCG HFA.AER.AD 2 PUF INH Q4-6 PRN PRN Asthma Aspirin (Aspirin*) 81 MG TAB.CHEW 1 TAB PO DAILY HEART HEALTH (Reported) Fluticasone/Vilanterol (Breo Ellipta 200-25 Mcg INH) 200 MCG-25 MCG/DOSE BLST.W.DEV 1 PUFF PO DAILY BREATHING PROBLEMS (Reported) Olmesartan/Hydrochlorothiazide (Benicar Hct 40-12.5 MG Tablet) 40 MG-12.5 MG TABLET 1 TAB PO DAILY HEART (Reported) Pyridoxine HCl (Vitamin B-6) 50 MG TABLET 100 MG PO BID supplement for nerves Rosuvastatin Calcium (Crestor) 10 MG TABLET 1 TAB PO DAILY CHOLESTEROL ( Reported) Observation Initial Note - I have personally examined ALEXCHENTEFITO NEW on 11/03/17 at 1138. 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 Relation not specified for: FH: diabetes mellitus FH: hypertension FHx: stroke Psychosocial History ETOH Use: denies use Illicit Drug Use: denies illicit drug use Review of Systems Review of Systems Constitutional: Denies: no symptoms. Exam & Diagnostic Data Last 24 Hrs of Vital Signs/I&O Vital Signs Date Time Temp Pulse Resp B/P B/P Pulse O2 O2 Flow FiO2 Mean Ox Delivery Rate 11/03 1000 97.1 66 18 158/94 99 Room Air 11/03 0736 99 Room Air 11/03 0724 97.1 67 18 175/91 98 Room Air 11/03 0709 96.6 69 18 165/83 95 Room Air Intake & Output 11/03 1600 11/03 0800 03/20 0000 Intake Total 0 Output Total Balance 0 Intake, Oral 0 Patient 84.822 kg Weight Weight Reported by Patient Measurement Method Physical Exam General Appearance Alert, Oriented X3, Cooperative, No Acute Distress Neck Supple, No JVD, tender in right side of neck Cardiovascular Normal S1, Normal S2 Lungs Clear to Auscultation, Normal Air Movement Abdomen Soft, No Tenderness Neurological Normal Gait, Normal Speech, strength - 4/5 in left upper and lower limb, decreased touch sensation in left side, Extremities No Clubbing, No Cyanosis, No Edema, Normal Pulses Vascular Normal Pulses, Pulses Symmetrical Last 24 Hrs of Labs/Pool: Laboratory Tests 11/03/17 0733: Anion Gap 13, Estimated GFR > 60, BUN/Creatinine Ratio 17.5, Glucose 103 H, Calcium 9.2, Total Bilirubin 0.7, AST 27, ALT 38, Alkaline Phosphatase 46, Troponin I 0.02, Total Protein 6.6, Albumin 3.9, Globulin 2.7, Albumin/Globulin Ratio 1.4, PT 13.5 H, INR 1.24 H, APTT 30, CBC w Diff NO MAN DIFF REQ, RBC 4.26 L, MCV 92.1, MCH 30.8, MCHC 33.4, RDW 14.5, MPV 7.8, Gran % 40.8 L, Lymphocytes % 45.7, Monocytes % 9.2, Eosinophils % 3.7, Basophils % 0.6, Absolute Granulocytes 2.4, Absolute Lymphocytes 2.7, Absolute Monocytes 0.5, Absolute Eosinophils 0.2, Absolute Basophils 0 Diagnostic Data CXR Results Chest x-ray-no acute cardiopulmonary abnormality. Assessment/Plan Assessment: Patient is a 69-year-old male presented with chief complaints of numbness in the left arm since couple of days. ED course - vital signs -temperature 96.6, pulse 69, respiratory rate 18, blood pressure 165 /80, SPO2 95% on room air. Blood workup -hemoglobin 13.1, hematocrit 39.8, MCV 92.1, platelet count 211, serum sodium 143, potassium 3.2, chloride 100, carbon DEXA 29, anion gap 13, BUN 14, creatinine 0.8, glucose 103, glucose 103, calcium 9.2, total bilirubin 0.7, AST 27, ALT 38, alkaline phosphatase 46, troponin I 0.02, albumin 3.9, PT/INR 13.5/1.24, EKG -normal sinus rhythm CT scan of the head -no evidence of acute infarct or hemorrhage Chest x-ray-no acute cardiopulmonary abnormality. Carotid Doppler study -no evidence of hemodynamically significant carotid artery stenosis in both right and left carotid system. Patient was given 40 mEq of potassium and 325 a gram of aspirin. Discussed with Dr. armijo and advised for MRI in a.m. and CT head and neck angiogram. Plan - TIA/stroke under evaluation -possible cervical spine myelopathy/radiculopathy * Observe to telemetry floor * Neuro check place neurology consult * Follow-up MRI of the head and CT head and neck angiogram * tablet aspirin 325 mg daily * We will start patient on high dose Statins -atorvastatin 80 mg daily * We will give permissive hypertension, hold hydrochlorothiazide until Stroke excluded and continue FRANCISCO inhibitors as before. Hypokalemia - * Dont know exactly but had K supplementation in ED for it. Will recheck it tmr. Code Status - FC Diet - heart healthy diet DVT prophylaxis - ALPS/Heparin As Ranked By This Provider Problem List: 1. CVA (cerebral vascular accident) Core Measures/Misc (05/03) Acute Coronary Syndrome ACS Diagnosis: No Congestive Heart Failure Congestive Heart Failure Diagnosis No Cerebrovascular Accident CVA/TIA Diagnosis: Yes NIH Stroke Scale: Total 0 Date Last Known Well: 10/29/17 Swallow Evaluation Pass VTE (View Protocol) VTE Risk Factors Age>40 No Mechanical VTE Prophylaxis d/t N/A MechProphylax Ordered No VTE Pharm Prophylaxis d/t Bleeding (Active) Sepsis (View protocol) Sepsis Present: No
--- NOTE | 2017-11-03 12:14 | CT SCAN REPORT ---
EXAMINATION: CT HEAD ANGIOGRAM, CT NECK ANGIOGRAM CLINICAL INFORMATION: New onset left-sided weakness. Evaluate for cerebrovascular accident. COMPARISON: CT scan of the head same day. 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 A CT angiogram of the head and neck was performed in the arterial phase after the intravenous administration of 95 mL Optiray 320. Additional delayed postcontrast images of the head were also obtained. MIP reconstructions were generated in multiple orientations at the acquisition workstation. Multiple three-dimensional surface rendered images and maximum intensity projection images were generated on a dedicated 3-D lab workstation. Arterial stenoses are measured in accordance with NASCET criteria or similar method if applicable. Total exam dose-length product 1194 mGy-cm FINDINGS: Head: Postcontrast images reveal no abnormal intracranial mass or enhancement. There is no intracranial mass effect or midline shift. Lateral and third ventricles are proportionate to the subarachnoid spaces. No hydrocephalus. Palacios-white matter differentiation is preserved and there is no evidence of acute territorial infarct. The calvarium and skull base are intact. There is no mastoid or middle ear effusion. Paranasal sinuses are well-aerated. Chronic changes of an old left lamina papyracea fracture are noted. 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 CT angiogram neck: The aortic arch apex is normal and the origins of the major aortic branches are widely patent. Common carotid arteries are normal. There is minimal atheromatous calcification at the left carotid bifurcation. No stenosis of the extracranial internal carotid arteries. The cervical segments of the vertebral arteries as well as their origins are widely patent. CT angiogram head: Petrous, cavernous, and supraclinoid segments of internal carotid arteries are patent. The intradural vertebral artery segments and basilar artery are patent. Anterior, middle, and posterior cerebral artery complexes are normal. No evidence of high-grade stenosis or proximal large vessel occlusion is visualized within the intracranial vessels. Other: Lung apices are clear. Soft tissues of the neck including the thyroid gland are unremarkable. 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 IMPRESSION: Unremarkable CT angiogram of the head and neck. There is minimal atheromatous calcification involving left carotid bifurcation. No stenosis of the cervical carotid or vertebral arteries. No high-grade stenosis or proximal large vessel occlusion is visualized within the intracranial vessels. 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 If there is a clinical concern for compressive myelopathy then a dedicated cervical spine MRI can be helpful for better anatomic characterization of the cord and canal.
--- NOTE | 2017-11-03 13:24 | PN- Att Addend ---
Attending Addendum Attending Brief Note 77-year-old active -[place] male comes in with a subtle weakness on the left side left arm and left leg left arm is more like tingling which maybe related to some neck abnormalities. Lipidemia on medications. Denies any chest pain, no shortness of breath. Speech problems. The ER had a CAT scan of the head and neck which showed no acute abnormalities. Patient was kept for observation to monitor his neuro signs, monitor his blood pressure which is slightly elevated have a neurology consultation today, and have an MRI of the neck will treat accordingly. Current Medications Sig/Kain Start time Last Medication Dose Route Stop Time Status Admin Aspirin 81 MG DAILY 11/03 1152 AC PO Aspirin 0 .STK-MED ONE 11/03 1040 DC PO Aspirin 325 MG ONCE ONE 11/03 1015 DC 11/03 PO 11/03 1016 1036 Atorvastatin Calcium 80 MG 1700 11/03 1700 AC PO Losartan Potassium 50 MG DAILY 11/04 1000 AC PO Potassium Chloride 0 .STK-MED ONE 11/03 0858 DC PO Potassium Chloride 40 MEQ ONCE ONE 11/03 0815 DC 11/03 PO 11/03 0816 0853 Laboratory Tests 11/03/17 0733: Anion Gap 13, Estimated GFR > 60, BUN/Creatinine Ratio 17.5, Glucose 103 H, Calcium 9.2, Total Bilirubin 0.7, AST 27, ALT 38, Alkaline Phosphatase 46, Troponin I 0.02, Total Protein 6.6, Albumin 3.9, Globulin 2.7, Albumin/Globulin Ratio 1.4, PT 13.5 H, INR 1.24 H, APTT 30, CBC w Diff NO MAN DIFF REQ, RBC 4.26 L, MCV 92.1, MCH 30.8, MCHC 33.4, RDW 14.5, MPV 7.8, Gran % 40.8 L, Lymphocytes % 45.7, Monocytes % 9.2, Eosinophils % 3.7, Basophils % 0.6, Absolute Granulocytes 2.4, Absolute Lymphocytes 2.7, Absolute Monocytes 0.5, Absolute Eosinophils 0.2, Absolute Basophils 0 Vital Signs Date Time Temp Pulse Resp B/P B/P Pulse O2 O2 Flow FiO2 Mean Ox Delivery Rate 11/03 1237 97.8 64 18 172/64 98 Room Air 11/03 1000 97.1 66 18 158/94 99 Room Air 11/03 0736 99 Room Air 11/03 0724 97.1 67 18 175/91 98 Room Air 11/03 0709 96.6 69 18 165/83 95 Room Air Intake & Output 11/03 1600 Intake Total Output Total Balance Patient 187 lb Weight Potassium is a little low will replace.
--- NOTE | 2017-11-03 13:55 | Cons- Neurology ---
General Information and HPI Consulting Request Date of Consult: 11/03/17 Requested By: Margarita Del Cid MD History of Present Illness: 77-year-old male admitted with paresthesia of the left upper extremity. The patient states that for weeks or months he has had an intermittent tingling sensation of the palmar aspect of the left hand. 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 This morning he awakened with a heightened tingling or discomfort of the left arm radiating proximally. There was no associated visual complaints, slurring of speech or paresthesia of the leg. When seen in the emergency room, he was found to have questionable weakness of the left leg and a stroke was postulated. However, the patient has had multiple back surgeries in the past and endorses a history of chronic, subjective leg weakness. CT scan of the head, CTA and carotid ultrasound were all found to be normal. Allergies/Medications Allergies: Coded Allergies: No Known Allergies (06/26/17) Home Med List: Albuterol Sulfate (Proair Hfa) 90 MCG HFA.AER.AD 2 PUF INH Q4-6 PRN PRN Asthma Aspirin (Aspirin*) 81 MG TAB.CHEW 1 TAB PO DAILY HEART HEALTH (Reported) Fluticasone/Vilanterol (Breo Ellipta 200-25 Mcg INH) 200 MCG-25 MCG/DOSE BLST.W.DEV 1 PUFF PO DAILY BREATHING PROBLEMS (Reported) Olmesartan/Hydrochlorothiazide (Benicar Hct 40-12.5 MG Tablet) 40 MG-12.5 MG TABLET 1 TAB PO DAILY HEART (Reported) Rosuvastatin Calcium (Crestor) 10 MG TABLET 1 TAB PO DAILY CHOLESTEROL ( Reported) Review of Systems Review of Systems: Intermittent back and leg pain, paresthesia of the left hand and subjective weakness of the legs. 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 Relation not specified for: FH: diabetes mellitus FH: hypertension FHx: stroke Psychosocial History Smoking Status: Never Smoked ETOH Use: denies use Illicit Drug Use: denies illicit drug use Exam & Diagnostic Data Vital Signs and I&O Vital Signs Date Time Temp Pulse Resp B/P B/P Pulse O2 O2 Flow FiO2 Mean Ox Delivery Rate 11/03 1237 97.8 64 18 172/64 98 Room Air 11/03 1000 97.1 66 18 158/94 99 Room Air 11/03 0736 99 Room Air 11/03 0724 97.1 67 18 175/91 98 Room Air 11/03 0709 96.6 69 18 165/83 95 Room Air Intake & Output 11/03 1600 11/03 0800 11/03 0000 Intake Total 0 Output Total Balance 0 Intake, Oral 0 Patient 187 lb 187 lb Weight Weight Reported by Patient Measurement Method Pleasant elderly male in no acute distress. Higher cortical function was intact. Speech was fluent. The head was normocephalic and atraumatic. Pupils were equal. His gaze was mildly disconjugate with deviation medially of the left eye. The face was symmetric. Hearing was grossly normal. Tongue was midline. The motor examination showed no drift of the upper extremities. There was no gross focal or lateralizing weakness. There was no wasting of the thenar eminence. Deep tendon reflexes were symmetric. Plantar responses were flexor. Fine finger movements and rapid alternating movements were performed normally. There was no ataxia on [id number] testing. Sensory examination was normal to light touch and joint position. His gait was narrow based and steady. Tinel 's and Phalen's sign were positive at the left wrist. Assessment/Plan Assessment: My suspicion is that Lon presents with worsening symptoms referable to median nerve entrapment at the left wrist,the carpal tunnel syndrome. Mechanical signs were present at the left wrist. There was no evidence of upper motor neuron abnormalities which would implicate stroke and his initial studies referable to the head and neck are normal. Recommendations: We would recommend a noncontrast MRI of the brain. If this is normal, as expected, we would recommend seeing him in the outpatient setting for consideration of nerve conduction study. In the interim, we would endorse use of vitamin B6 100 mg twice daily and a wrist splint for the nighttime hours. Please feel free to call with questions. Consult Acknowledgment - Thank you for your consult request.
[2017-11-03 14:16] VITALS: BP 152/80
[2017-11-03 21:48] VITALS: BP 147/79
[2017-11-04 06:30] VITALS: BP 110/65
--- NOTE | 2017-11-04 07:17 | PN- Housestaff ---
Subjective Follow-up For: Carpal tunnel syndrome Subjective: seen and examined Patient remained stable without any acute issues overnight. He did have splintting last night which improved his symptoms very well. Review of Systems Constitutional: Reports: see HPI. Comments: ROS negative except the above Observation Re-evaluation Note - 11/04/17, 0717 MRI to rule out strok or stroke mimics Objective Last 24 Hrs of Vital Signs/I&O Vital Signs Date Time Temp Pulse Resp B/P B/P Pulse O2 O2 Flow FiO2 Mean Ox Delivery Rate 11/03 2148 97.3 66 18 147/79 92 11/03 2110 140/80 11/03 1416 98.1 64 18 152/80 96 Room Air 11/03 1237 97.8 64 18 172/64 98 Room Air 11/03 1000 97.1 66 18 158/94 99 Room Air 11/03 0736 99 Room Air 11/03 0724 97.1 67 18 175/91 98 Room Air Intake & Output 11/04 0800 11/04 0000 11/03 1600 Intake Total 100 300 400 Output Total Balance 100 300 400 Intake, Oral 100 300 400 Number 1 Bowel Movements Patient 84.822 kg Weight Physical Exam General Appearance: Alert, Oriented X3, Cooperative Skin: No Rashes, No Breakdown HEENT: Atraumatic, PERRLA Neck: Supple Cardiovascular: Normal S1, Normal S2 Lungs: Clear to Auscultation, Normal Air Movement Abdomen: Normal Bowel Sounds, Soft, No Tenderness Neurological: Normal Gait, Normal Speech, Cranial Nerves 3-12 NL, Reflexes 2+, atrophic thenar eminence with numbness in the left wrist and arm Extremities: No Clubbing, No Cyanosis, No Edema Vascular: Normal Pulses, Pulses Symmetrical Current Medications: Current Medications Sig/Kain Start time Last Medication Dose Route Stop Time Status Admin Acetaminophen 650 MG ONCE ONE 11/04 0315 DC 11/04 PO 11/04 0316 0315 Aspirin 81 MG DAILY 11/03 1152 AC 11/04 PO 1131 Atorvastatin Calcium 80 MG 1700 11/03 1700 DC 11/03 PO 1606 Atorvastatin Calcium 20 MG 1700 11/03 1700 AC PO Heparin Sodium 5,000 UNIT Q8 11/03 1400 AC 11/04 (Porcine) SC 0510 Losartan Potassium 50 MG DAILY 11/04 1000 DC PO Losartan Potassium 50 MG DAILY 11/03 2045 AC 03/21 PO 1132 Pyridoxine HCl 100 MG BID 11/03 2200 AC 11/04 PO 1132 Last 24 Hrs of Lab/Pool Results Last 24 Hrs of Labs/Mics: Laboratory Tests 11/04/17 0615: Anion Gap 8, Estimated GFR > 60, BUN/Creatinine Ratio 17.5, Triglycerides 104, Cholesterol 123, LDL Cholesterol, Calc 64 L, HDL Cholesterol 39 L, Cholesterol /HDL Ratio 3 Assessment/Plan Assessment: 77 YO M admitted with paresthesia of the left upper extremity. The patient states that for weeks or months he has had an intermittent tingling sensation of the palmar aspect of the left hand. This morning he awakened with a heightened tingling or discomfort of the left arm radiating proximally. There was no associated visual complaints, slurring of speech or paresthesia of the leg. When seen in the emergency room, he was found to have questionable weakness of the left leg and a stroke was postulated. However, the patient has had multiple back surgeries in the past and endorses a history of chronic, subjective leg weakness. 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 Denies smoking, alcohol, drug abuse. Family history Mother had diabetes, hypertension, at the age of 70 secondary to stroke. Surgical history cataract surgery of the right eye, multiple back surgeries, had a steroid injection in the back in 2017. VS at presentation - Temp 96.6, pulse 69, respiratory rate 18, blood pressure 165/80, SPO2 95% on room air. Physical exam GA: no acute distress. Higher cortical function was intact. Speech was fluent. The head was normocephalic and atraumatic. Pupils were equal. His gaze was mildly disconjugate with deviation medially of the left eye. The face was symmetric. Hearing was grossly normal. Tongue was midline. The motor examination showed no drift of the upper extremities. There was no gross focal or lateralizing weakness. There was mild wasting of the thenar eminence. Deep tendon reflexes were symmetric. Plantar responses were flexor. Fine finger movements and rapid alternating movements were performed normally. There was no ataxia on [id number] testing. Sensory examination was normal to light touch and joint position. His gait was narrow based and steady. Tinel's and Phalen's sign were positive at the left wrist. Labs H&H 13.1/39.8, MCV 92.1, platelet count 211, Chem panel Na 143, K 3.2, chloride 100, carbon DEXA 29, anion gap 13, BUN 14, creatinine 0.8, glucose 103, glucose 103, calcium 9.2, total bilirubin 0.7, AST 27, ALT 38, ALP 46, albumin 3.9, PT/INR 13.5/1.24 Imaging EKG -normal sinus rhythm, CT scan of the head -no evidence of acute infarct or hemorrhage Chest x-ray-no acute cardiopulmonary abnormality. Carotid Doppler study -no evidence of hemodynamically significant carotid artery stenosis in both right and left carotid system. 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 Plan Placed in observation for ruling out stroke Carpal Tunnel Syndrome He was placed on Splintting at night. He felt much better after splintting. He was started on B6 100mg BID. Imaging work up remained negative so far. He needs outpatinet follow up with neurology for nerve conduction studies of left median nerve. Follow up with . stable for discharge today. Incidental finding of bilateral ocular staphyloma He will benefit from officail Ophthal exam as outpatient. HTN Continue Losartan daily, ASA 81mg daily and atorvastatin 20mg daily. He was on Benicar, Rosuvastatin 10mg daily at home which were continued on discharge. Hypokalemia K of 3.2 at admission, 3.4 today Repleted. DVT prophylaxis SC heparin Code status full code Problem List: 1. CVA (cerebral vascular accident) 2. Carpal tunnel syndrome on left 3. Disc herniation 4. Hypokalemia Pain Ratin Pain Location: left hand Pain Goal: Pain 4 or less Pain Plan: tylenol prn Tomorrow's Labs & Rationales: none
[2017-11-04] MEDS ORDERED: VITAMIN B-650 M2 PO (09:28)
--- NOTE | 2017-11-04 09:30 | Patient Discharge Instructions ---
Discharge Instructions General Discharge Information You were seen/treated for: Carpel tunnel syndrome Special Instructions: Please follow up with your PCP in a week Please follow up with a neurologist in a week Please follow up regarding getting nerve conduction study of left median nerve as outpatient Please follow up with eye doctor for possilbe stapyloma on both eyes. Diet Recommended Diet: Heart Healthy Activity Activity Self Limited: Yes Acute Coronary Syndrome Inclusion Criteria At DC or during hospital stay patient has or had the following: ACS DIAGNOSIS No Discharge Core Measures Meds if any: Prescribed or Continued at Discharge Meds if any: NOT Prescribed or Continued at Discharge Congestive Heart Failure Inclusion Criteria At DC or during hospital stay patient has or had the following: CHF DIAGNOSIS No Discharge Core Measures Meds if any: Prescribed or Continued at Discharge Meds if any: NOT Prescribed or Continued at Discharge Cerebrovascular accident Inclusion Criteria At DC or during hospital stay patient has or had the following: CVA/TIA Diagnosis No Discharge Core Measures Meds if any: Prescribed or Continued at Discharge Meds if any: NOT Prescribed or Continued at Discharge Venous thromboembolism Inclusion Criteria VTE Diagnosis No VTE Type NONE VTE Confirmed by (Test) NONE Discharge Core Measures - Per Current guidelines, there needs to be overlap - treatment for the first 5 days of Warfarin therapy. - If discharged on Warfarin prior to 5 days of - overlap therapy, the patient will need to be - assessed for post discharge needs including - *Post discharge parental anticoagulation - *Warfarin and/or parental anticoagulation education - *Follow up date to check INR post discharge At least 5 days overlap therapy as Inpatient No Meds if any: Prescribed or Continued at Discharge Note: Overlap Therapy is Warfarin and Anticoagulant Meds if any: NOT Prescribed or Continued at Discharge
--- NOTE | 2017-11-04 09:46 | PN- Neurology ---
See Addendum Subjective Subjective: BACKGROUND: (seen by Dr Arenas 11-03) 77-year-old male admitted with paresthesia of the left upper extremity. Initially involved the entire arm, now localized to left hand digits 2 through 4 , most intense in left hand digit 2. No facial droop. No leg weakness. Chronic vision disturbance status post cataract surgery. States he is to have a follow-up visit with his air sampling and monitoring tomorrow and [facility] as an outpatient. CT scan of the head, CTA and carotid ultrasound were all found to be normal. Remote history of carpal tunnel release of the right hand. Objective Vital Signs and I&Os Vital Signs Date Time Temp Pulse Resp B/P B/P Pulse O2 O2 Flow FiO2 Mean Ox Delivery Rate 11/04 0630 97.8 67 18 110/65 97 11/03 2148 97.3 66 18 147/79 92 11/03 2110 140/80 11/03 1416 98.1 64 18 152/80 96 Room Air 11/03 1237 97.8 64 18 172/64 98 Room Air 11/03 1000 97.1 66 18 158/94 99 Room Air Intake & Output 11/04 1600 11/04 0800 11/04 0000 11/03 1600 11/03 0800 11/03 0000 Intake Total 100 300 400 0 Output Total Balance 100 300 400 0 Intake, Oral 100 300 400 0 Number 1 Bowel Movements Patient 187 lb 187 lb Weight Weight Reported by Patient Measurement Method Physical Exam: Awake alert cooperative Ambulating around his room independently Head normocephalic atraumatic Neck supple line heart regular rate and rhythm Extremities no clubbing cyanosis or edema Neurologic exam: Awake alert oriented to person place and time Speech fluent, no dysarthria Cranial nerves: Visual lopez full to confrontation Full extraocular motility Intact facial sensation Symmetric facial movements Tongue midline Shoulder shrug symmetric Motor: Normal muscle bulk tone and strength. Mild loss of dexterity of the left hand for rapid alternating and fine motor movements of finger tapping. No drift Negative satellite sign Negative Phalen's Positive Tinel's at the left wrist Current Medications: Current Medications Sig/Kain Start time Last Medication Dose Route Stop Time Status Admin Acetaminophen 650 MG ONCE ONE 11/04 314 DC 11/04 PO 11/04 Aspirin 81 MG DAILY 11/03 1152 AC PO Aspirin 0 .STK-MED ONE 11/03 1040 DC PO Aspirin 325 MG ONCE ONE 11/03 1015 DC 11/03 PO 11/03 1016 1036 Atorvastatin Calcium 80 MG 1700 11/03 1700 DC 11/03 PO 1606 Atorvastatin Calcium 20 MG 17011/03 1700 AC PO Heparin Sodium 5,000 UNIT Q8 11/03 1400 AC 11/04 (Porcine) SC 0510 Losartan Potassium 50 MG DAILY 11/04 1000 DC PO Losartan Potassium 50 MG DAILY 11/03 2044 AC 11/03 PO 211 Pyridoxine HCl 100 MG BID 11/03 2199 AC 11/03 PO 2109 Results Last 24 Hours of Lab Results: Laboratory Tests 11/04 0615 Chemistry Sodium (137 - 145 mmol/L) 141 Potassium (3.5 - 5.1 mmol/L) 3.4 L Chloride (98 - 107 mmol/L) 101 Carbon Dioxide (22 - 30 mmol/L) 31 H Anion Gap (5 - 16) 8 BUN (9 - 20 mg/dL) 14 Creatinine (0.7 - 1.2 mg/dL) 0.8 Estimated GFR (>60 ml/min) > 60 BUN/Creatinine Ratio (7 - 25 %) 17.5 Triglycerides (<150 mg/dL) 104 Cholesterol (< 200 MG/DL) 123 LDL Cholesterol, Calc (65 - 129 mg/dL) 64 L HDL Cholesterol (40 - 60 mg/dL) 39 L Cholesterol/HDL Ratio (0.00 - 4.88 %) 3 Recent Imaging Studies: Brain MRI done today is negative for acute stroke IMPRESSION: Unremarkable CT angiogram of the head and neck. There is minimal atheromatous calcification involving left carotid bifurcation. No stenosis of the cervical carotid or vertebral arteries. No high-grade stenosis or proximal large vessel occlusion is visualized within the intracranial vessels. 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 If there is a clinical concern for compressive myelopathy then a dedicated cervical spine MRI can be helpful for better anatomic characterization of the cord and canal. 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
--- NOTE | 2017-11-04 10:31 | MRI REPORT ---
MR BRAIN WITHOUT CONTRAST CLINICAL INFORMATION: Weakness in the left side of the body. COMPARISON: Head and neck CTA 11/03/2017. TECHNIQUE: MRI of the brain without contrast was obtained using routine sequences. FINDINGS: There is no hydrocephalus, extra-axial surface collection, or herniation. There are mild T2 signal changes throughout the supratentorial white matter, most likely mild chronic microangiopathy. The major flow voids at the skull base are preserved. There is no acute infarct on diffusion-weighted imaging. There is no intracranial hemorrhage on the gradient recalled echo acquisition. High right and anterior right frontal dural ossification is stable. The midline structures are normal. The cerebellar tonsils are normally positioned. The cerebellum and brainstem are normal. The craniocervical junction is normal. Osseous marrow signal intensity is homogenous. Bilateral ocular staphyloma. Stable appearing severe degenerative changes involving the right TMJ. IMPRESSION: - No acute intracranial findings. No acute infarcts. - Mild chronic microangiopathy. - Bilateral ocular staphyloma. - Stable appearing severe degenerative changes involving the right TMJ.
[2017-11-04 14:17] VITALS: BP 152/79
--- NOTE | 2017-11-04 17:03 | PN- Att Addend ---
Attending Addendum Attending Brief Note Patient feeling better and feeling better with the immobilizer. Vital signs are stable no fever. No new changes on physical. Went for an MRI. Of the head that showed no acute intracranial findings no acute infarcts with mild chronic microangiopathy. Bilateral ocular staphyloma. The findings are probably related to carpal tunnel patient will be discharged to follow with neurologist and myself 24 TOTALS 11/04 0000 11/03 0000 Intake Total 700 Output Total Balance 700 Intake, Oral 700 Number 1 Bowel Movements Patient 187 lb Weight Weight Reported by Patient Measurement Method Laboratory Tests 11/04/17 0615: Anion Gap 8, Estimated GFR > 60, BUN/Creatinine Ratio 17.5, Triglycerides 104, Cholesterol 123, LDL Cholesterol, Calc 64 L, HDL Cholesterol 39 L, Cholesterol /HDL Ratio 3 11/03/17 0733: Anion Gap 13, Estimated GFR > 60, BUN/Creatinine Ratio 17.5, Glucose 103 H, Calcium 9.2, Total Bilirubin 0.7, AST 27, ALT 38, Alkaline Phosphatase 46, Troponin I 0.02, Total Protein 6.6, Albumin 3.9, Globulin 2.7, Albumin/Globulin Ratio 1.4, PT 13.5 H, INR 1.24 H, APTT 30, CBC w Diff NO MAN DIFF REQ, RBC 4.26 L, MCV 92.1, MCH 30.8, MCHC 33.4, RDW 14.5, MPV 7.8, Gran % 40.8 L, Lymphocytes % 45.7, Monocytes % 9.2, Eosinophils % 3.7, Basophils % 0.6, Absolute Granulocytes 2.4, Absolute Lymphocytes 2.7, Absolute Monocytes 0.5, Absolute Eosinophils 0.2, Absolute Basophils 0 Vital Signs Date Time Temp Pulse Resp B/P B/P Pulse O2 O2 Flow FiO2 Mean Ox Delivery Rate 11/04 1417 98.1 82 18 152/79 98 Room Air 11/04 1132 64 132/78 11/04 0630 97.8 67 18 110/65 97 11/03 2148 97.3 66 18 147/79 92 11/03 2110 140/80 Monitor potassium.
== END 2017-11-04 15:10 ==
LOC: ERH 07:01 → ERHI 11:25 → 1NO 11:25 → ENRESERV 12:09 → ENTRNSPT 12:52 → EDTRNSPT 13:01 → EDTRNSPTSTS 13:01 → 1NO 13:10 → CMPTRNSPT 13:22 → 1NO 14:05 → ENPENDDIS 11-04 14:08 → ENTRNSPT 11-04 15:03 → 1NO 11-04 15:10 → EDTRNSPTSTS 11-04 15:13 → EDTRNSPT 11-04 15:13 → CMPTRNSPT 11-04 15:14
PROVIDERS: Emergency Medicine; Internal Medicine Adolescent Medicine
DX: G56.02 Carpal tunnel syndrome, left upper limb (principal); I10 Essential (primary) hypertension; Z79.82 Long term (current) use of aspirin; E78.5 Hyperlipidemia, unspecified; J45.909 Unspecified asthma, uncomplicated; Z86.718 Personal history of other venous thrombosis and embolism; M54.9 Dorsalgia, unspecified; M79.606 Pain in leg, unspecified; Z79.01 Long term (current) use of anticoagulants
CPT/HCPCS: 70551; 36592; 71045; 82436; 93005; 93010; 96372; G0378; J1644; J3490